=== PATIENT | female | born 1975 | race American Indian/Alaskan Native ===

== ENCOUNTER 2016-12-09 18:29 | Emergency (ER) | payer OTHER ==
[2016-12-09 18:56] VITALS: BP 162/99
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
[2016-12-09] MEDS ORDERED: MOTRIN PO ONE (22:25)
== END 2016-12-09 23:20 | disposition home or self-care (01) ==
LOC: ED 18:29
DX: S13.4XXA Sprain of ligaments of cervical spine, initial encounter (principal); S39.012A Strain of muscle, fascia and tendon of lower back, initial encounter; I10 Essential (primary) hypertension; V49.49XA Driver injured in collision with other motor vehicles in traffic accident, initial encounter; Y93.9 Activity, unspecified; Y92.9 Unspecified place or not applicable; Y99.9 Unspecified external cause status
CPT/HCPCS: 99282